=== PATIENT | female | born 1965 | race Caucasian/White ===

== ENCOUNTER 2016-10-14 12:10 | Emergency (ER) | payer BC ==
[~2016-10-14] VITALS: Ht 157.5 cm; Wt 84.0 kg
[~2016-10-14 12:10] MED LIST: ADVIL200 MG PO; DELTASONE20 M1 PO; EFFEXOR XR75 MG PO; HYDROCODON-ACE1 EAC7 PO; IMITREX100 MG PO; IRON325 M1 PO; LISINOPRIL5 MG PO; MULTIPLE VITAM1 EAC4 PO; Maalox, Mylanta PO; NASONEX17 GM BOTH NARES; NORCO 5/3251 TABLET PO; NORVASC5 MG PO; PRISTIQ100 MG PO; PROTONIX40 MG PO; Tylenol Regular Stre PO; VITAMIN D-32000 UNI2 PO; ZESTRIL,PRINIVI10 MG PO; ZESTRIL10 MG PO; Zofran IV
[2016-10-14 13:12] LABS: HEMATOCRIT 38.9 % (36.0-46.0); MCH 29.1 PG (29.0-34.0); MCHC 33.2 G/DL (30.0-36.0); MCV 87.6 FL (83-99); MEAN PLAT.VOLUME 10.1 uM^3 (9.5-12.4); PLATELET COUNT 225 K/uL (156-360); RBC DIS.WIDTH-CV 13.7 % (11.8-14.6); RBC DIS.WIDTH-SD 44.3 % (39-53); RED BLOOD COUNT 4.44 M/uL (3.80-5.20); WHITE BLOOD COUNT 6.6 K/uL (4.1-10.2)
[2016-10-14 13:16] LABS: CHLORIDE 107 mEq/L (99-109); POTASSIUM 4.2 mEq/L (3.7-5.4); SODIUM 140 mEq/L (136-147)
[2016-10-14 13:18] LABS: GLUCOSE 104 mg/dL (70-99)
[2016-10-14 13:19] LABS: ANION GAP 12 MEQ/L (2-14)
[2016-10-14 13:22] LABS: GFR ESTIMATE (CALCULATED) > 59 mL/min/
[2016-10-14 13:23] LABS: UREA NITROGEN (BUN) 18 mg/dL (9-23)
[2016-10-14 13:28] LABS: TROP-I INTERPRETATION NEGATIVE; TROPONIN-I < 0.01 ng/mL (0.0-0.30)
[2016-10-14 14:11] LABS: EOSINOPHIL (%) 1.5 % (0-5); EOSINOPHIL COUNT 0.1 K/uL (0-0.3); HEMATOLOGY COMMENT 1 SMEAR COMPATIBLE; IMMATURE GRANULOCYTE (%) 0.2 % (0.0-0.7); INSTRUMENT ABS NEUTROPHIL CT 3.8 K/uL; LYMPHOCYTE COUNT 2.3 K/uL (1.0-2.8); MONOCYTE (%) 6.5 % (3-12); MONOCYTE COUNT 0.4 K/uL (0-0.8); NEUTROPHIL (%) 57.1 % (45-76); NEUTROPHIL COUNT 3.8 K/uL (1.8-6.4)
[2016-10-14] MEDS ORDERED: TYLENOL WITH C1 EACH PO (14:21)
[2016-10-14 14:38] VITALS: BP 108/64
== END 2016-10-14 15:18 | disposition home or self-care (01) ==
LOC: EME 12:10
PROVIDERS: Emergency Medicine
DX: R55 Syncope and collapse (principal); S00.81XA Abrasion of other part of head, initial encounter; S00.511A Abrasion of lip, initial encounter; W19.XXXA Unspecified fall, initial encounter; M25.511 Pain in right shoulder; F32.9 Major depressive disorder, single episode, unspecified; G43.909 Migraine, unspecified, not intractable, without status migrainosus; Z98.84 Bariatric surgery status
CPT/HCPCS: 70450; 70486; 71010; 73030; 80048; 84484; 85025; 93005; 99281; 99285